=== PATIENT | female | born 1960 | race Caucasian/White ===

== ENCOUNTER 2018-05-24 21:17 | Emergency (ER) | payer MEDICARE, OTHER ==
[~2018-05-24] VITALS: Ht 157.5 cm; Wt 65.8 kg
--- NOTE | 2018-05-24 23:10 | Diagnostic Imaging Report ---
History:Fall. Comparison studies: None Technique: Axial images were obtained through the maxillofacial region. Coronal and sagittal images reconstructed from the axial data. Dose modulation, iterative reconstruction, and/or weight based adjustment of the mA/kV was utilized to reduce the radiation dose to as low as reasonably achievable. Intravenous contrast: None Findings: Soft tissues: Mild left lateral periorbital soft tissue edema. Bones: No fractures or bony abnormalities. Orbits: Globes: Intact Extra or intraconal abnormalities: None. Paranasal sinuses: Clear IMPRESSION: 1. Mild left lateral periorbital soft tissue edema. 2. No acute fracture. Signed by: Dr. Amanda Russ M.D. on 05/24/2018 11:04 PM
--- NOTE | 2018-05-24 23:10 | Diagnostic Imaging Report ---
History: Status post fall. Comparison studies: None Technique: Axial images were obtained through the cervical region.. Coronal and sagittal images reconstructed from the axial data. Dose modulation, iterative reconstruction, and/or weight based adjustment of the mA/kV was utilized to reduce the radiation dose to as low as reasonably achievable. Intravenous contrast: None Findings: Fractures: None. Soft tissue injuries: None. Atlantoaxial articulation: Intact. Alignment: Normal lordosis. No scoliosis. Cervicomedullary junction: No abnormalities. The foramen magnum is patent. Soft tissues: No abnormalities. Vertebrae: No fractures, infection or neoplasm. Degenerative changes: C4-C5: Mild degenerative disc disease. Mild left foraminal stenosis due to uncovertebral arthrosis. C5-C6: Mild left foraminal stenosis due to facet and uncovertebral arthrosis. C6-C7: Mild left foraminal stenosis due to facet and uncovertebral arthrosis.. IMPRESSION: 1. No acute cervical spine abnormalities. 2. Ligament, spinal cord and or vascular abnormalities cannot be excluded on the basis of this examination. 3. Cervical spondylosis as detailed above. Signed by: Dr. Amanda Russ M.D. on 05/24/2018 10:59 PM
--- NOTE | 2018-05-24 23:10 | Diagnostic Imaging Report ---
EXAMINATION: Head CT without contrast. HISTORY:Status post fall. COMPARISON:None. TECHNIQUE: Multidetector axial images were obtained from the foramen magnum to the vertex without contrast. The images were reconstructed using brain and bone algorithms. Thin section brain images were reformatted into coronal and sagittal planes. Dose modulation, iterative reconstruction, and/or weight based adjustment of the mA/kV was utilized to reduce the radiation dose to as low as reasonably achievable. Intravenous contrast: None IMAGE QUALITY: Acceptable. FINDINGS: Skull/scalp: Mild left lateral periorbital soft tissue edema. Expected postoperative changes from prior bilateral frontoparietal kentrell hole, left temporal craniectomy and right temporal craniotomy. Parenchyma: Large area of cortical-based hypodensity in left frontal temporal parietal region with regional volume loss and Acute dilatation of left lateral ventricle represents chronic encephalomalacia related to prior vascular insult or trauma. Nonspecific bilateral frontoparietal patchy white matter hypodensity are likely related to small vessel ischemic changes. No acute hemorrhage, mass or acute major vascular territorial infarct. Possibility of superimposed acute on chronic vascular insult is not excluded. Arteries: No density suggestive of thrombosis. Dural sinuses: No abnormal density suggestive of thrombosis. Ventricles: Marked exvacuodilatation of left lateral ventricle. Mild compensated dilatation of right lateral ventricle. No hydrocephalus. Extra-axial spaces: No abnormal density. Brain volume: Normal for age. Craniocervical junction: No mass, Chiari malformation, or basilar invagination. Sella: No mass. Paranasal/mastoid sinuses: Imaged portions unremarkable. IMPRESSION: 1. Mild left lateral periorbital soft tissue edema. No acute fracture. 2. No acute posttraumatic intracranial abnormality. Chronic findings: 1. Left frontoparietal temporal chronic encephalomalacia possibly related to prior vascular insult or trauma. 2. Mild to moderate supratentorial white matter microvascular ischemic changes. 3. Expected postoperative changes from prior right temporal craniotomy, left temporal craniectomy and bilateral frontoparietal kentrell holes. Signed by: Dr. Amanda Russ M.D. on 05/24/2018 10:55 PM
--- NOTE | 2018-05-24 23:42 | Diagnostic Imaging Report ---
KNEE LEFT THREE VIEWS, KNEE RIGHT THREE VIEWS, HAND 3+ VIEWS RIGHT, WRIST COMPLETE RIGHT, PELVIS AP 1-2 VIEWS Comparison: None Clinical history: Fall, pain Findings: Bone mineralization appears decreased, limiting sensitivity for fracture. Left knee: No joint effusion, acute fracture or dislocation. Mild tricompartmental spurring. Hazy density overlying the medial distal femur soft tissues which may be artifactual. Right knee: No joint effusion, acute fracture or dislocation. Tricompartmental degenerative changes, worse medially. Right hand and wrist: Soft tissue swelling about the hand and wrist. Age-indeterminate fracture of the fifth metacarpal neck with mild ventral angulation. AP pelvis: No acute fracture or dislocation on single provided view. Impression: 1. Fracture of the right fifth metacarpal neck; correlate with tenderness. 2. No other fractures seen. Signed by: Dr Griselda Alonso MD on 05/24/2018 11:38 PM
--- NOTE | 2018-05-24 23:43 | Diagnostic Imaging Report ---
CHEST 2 VIEWS, Technique: CHEST 2 VIEWS Comparison: None Clinical history: \S\FALL, NO LOC \S\[id number] \S\0 \S\Y DISCUSSION: Lateral is limited by patient's overlying arm. Normal cardiomediastinal silhouette. No consolidation or edema. No effusion or pneumothorax. No acute bony abnormality visualized. IMPRESSION: No acute abnormality Signed by: Dr Griselda Alonso MD on 05/24/2018 11:40 PM
[2018-05-25] MEDS ORDERED: ACETAMINOPHEN/CODEINE 300MG - 30MG TAB PO ONE
[2018-05-25 00:50] VITALS: BP 159/90
== END 2018-05-25 01:02 | disposition home or self-care (01) ==
LOC: ER 21:17
DX: S00.83XA Contusion of other part of head, initial encounter (principal); S62.326A Displaced fracture of shaft of fifth metacarpal bone, right hand, initial encounter for closed fracture; S00.212A Abrasion of left eyelid and periocular area, initial encounter; S60.511A Abrasion of right hand, initial encounter; S80.212A Abrasion, left knee, initial encounter; S80.211A Abrasion, right knee, initial encounter; W01.0XXA Fall on same level from slipping, tripping and stumbling without subsequent striking against object, initial encounter; Y93.01 Activity, walking, marching and hiking; Y92.488 Other paved roadways as the place of occurrence of the external cause; Z86.73 Personal history of transient ischemic attack (TIA), and cerebral infarction without residual deficits
CPT/HCPCS: 70450; 70486; 71046; 72125; 72170; 99284